=== PATIENT | female | born 1995 | race Two or more races ===

== ENCOUNTER 2017-09-26 23:06 | Emergency (ER) | payer MEDICAID ==
[~2017-09-26] VITALS: Ht 170.2 cm; Wt 68.0 kg
[2017-09-26 23:37] VITALS: BP 122/69
[2017-09-26 23:58] VITALS: BP 0/0
--- NOTE | 2017-09-26 23:58 | Emergency Room Report ---
History of Present Illness General Chief Complaint: Foreign Body Source: Patient Present Illness HPI Patient presents with complaints of possible vaginal foreign body Patient reports that few hours prior to arrival she had put a pad Which was a facial makeup application pad in the distal vaginal area to control some of her menstrual cycle When she was not able to visualize the pad This was concerning for her for possible retained foreign body And presents to the ER Patient reports starting her menstrual cycle 3 days ago Denies any pelvic pain denies any fevers or chills Allergies: Coded Allergies: No Known Allergies (Unverified , 09/26/17) Patient History Past Medical History: see triage record Pertinent Family History: none Last Menstrual Period: 09/23/17 Now: No Reviewed Nursing Documentation: PMH: Agreed; PSxH: Agreed Nursing Documentation-PMH Past Medical History: No Stated History Review of Systems All Other Systems: negative except mentioned in HPI Physical Exam Vital Signs Date Time Temp Pulse Resp B/P (MAP) Pulse Ox O2 Delivery O2 Flow Rate FiO2 09/26/17 23:29 98.1 91 16 122/69 99 Room Air 98.1 Sp02 EP Interpretation: reviewed, normal General Appearance: well appearing, no apparent distress Head: normocephalic, atraumatic Eyes: bilateral eye PERRL, bilateral eye EOMI ENT: hearing grossly normal, normal pharynx, TMs + canals normal, uvula midline Neck: full range of motion, supple, no meningismus, no bony tend Respiratory: lungs clear, normal breath sounds, no rhonchi, no respiratory distress, no retraction, no accessory muscle use Cardiovascular #1: normal peripheral pulses, regular rate, rhythm, no edema, no gallop, no JVD, no murmur Gastrointestinal: normal bowel sounds, non tender, soft, no mass, no organomegaly, non-distended, no guarding, no hernia, no pulsatile mass, no rebound Genitourinary: other - Pelvic exam with female nurse at bedside, does not reveal any obvious foreign body on visual examination, digital exam also does not reveal any palpable foreign body in the cul-de-sac or around the cervix Musculoskeletal: normal inspection Neurologic: oriented x3, responsive, network associate III-XII nml as tested, motor strength/ tone normal, sensory intact Psychiatric: mood/affect normal Skin: normal color, no rash, warm/dry, palpation normal Lymphatic: normal inspection, no adenopathy Medical Decision Making Diagnostic Impression: Primary Impression: well check Additional Impression: evaluation of FB ER Course the clinical exam does not reveal any obvious foreign body There is possibility that the material had been removed previously And the patient did not see it Also retained foreign body with lack of visualization is possible however we did have a fairly appropriate and good visual look of the vaginal vault and around the cervical region Patient will benefit from close outpatient follow-up and return with any changes or concerns Last Vital Signs Date Time Temp Pulse Resp B/P (MAP) Pulse Ox O2 Delivery O2 Flow Rate FiO2 09/26/17 23:37 98.1 91 16 122/69 99 Room Air 98.1 Status: unchanged Disposition: HOME, SELF-CARE Condition: Stable Patient Instructions: Pelvic Exam, Vaginal Foreign Body, [id number] Additional Instructions: Patient is provided with the discharge instructions notified to follow up with primary doctor in the next 2-3 days otherwise return to the er with any worsening symptoms. Please note that this report is being documented using [employer] technology. This can lead to erroneous entry secondary to incorrect interpretation by the dictating instrument. Mari Lujan DO Sep 26, 2017 23:58
== END 2017-09-26 23:58 | disposition home or self-care (01) ==
LOC: EMR 23:30
DX: Z00.8 Encounter for other general examination (principal)
CPT/HCPCS: 99283